=== PATIENT | female | born 1950 | race Caucasian/White ===

== ENCOUNTER 2018-05-29 21:17 | Emergency (ER) | payer OTHER ==
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
--- NOTE | 2018-05-30 08:40 | Diagnostic Imaging Report ---
CT scan cervical spine History: Trauma Total DLP equals 411 CTDI equals 20.1 Axial sections were obtained through the cervical spine region. Additional sagittal and coronal reformatted images are provided. No focal bony lesions are seen. Mild degenerative changes with intervertebral disc space narrowing at the level of C5-C6 vertebral bodies identified. Mild degenerative posterior spurring is noted facet arthropathy appreciated. Specifically, no fractures are identified. There is limited visualization of the margins of the cervical spinal cord. No obvious extradural soft tissue abnormalities are seen. The prevertebral soft tissues appear normal. Impression: No acute abnormalities.
== END 2018-05-29 23:26 | disposition home or self-care (01) ==
LOC: ER 21:17
DX: S30.1XXA Contusion of abdominal wall, initial encounter (principal); S50.811A Abrasion of right forearm, initial encounter; V43.52XA Car driver injured in collision with other type car in traffic accident, initial encounter; Y93.89 Activity, other specified; Y92.410 Unspecified street and highway as the place of occurrence of the external cause; Y99.8 Other external cause status
CPT/HCPCS: 70450-TC; 72125-TC; Z7502